=== PATIENT | male | born 1980 | race Caucasian/White ===

== ENCOUNTER 2019-11-28 19:07 | Emergency (ER) | payer SELFPAY ==
[~2019-11-28] VITALS: Ht 167.6 cm; Wt 56.7 kg
[2019-11-28 19:26] VITALS: BP_SYST 164
[2019-11-28 19:55] VITALS: BP_SYST 158
== END 2019-11-28 19:55 ==
LOC: SED 19:07
DX: Z02.89 Encounter for other administrative examinations (principal); J45.909 Unspecified asthma, uncomplicated
CPT/HCPCS: 99283